=== PATIENT | female | born 1935 | race Caucasian/White ===

== ENCOUNTER 2020-05-18 15:54 | Inpatient (IN) | payer MEDICARE ==
[~2020-05-18] VITALS: Ht 152.4 cm; Wt 74.3 kg
[2020-05-18] MEDS ORDERED: LANOXIN125 MCG PO (16:18)
[2020-05-18] MEDS ORDERED: ELIQUIS2.5 MG PO (16:19)
[2020-05-18] MEDS ORDERED: CYMBALTA30 MG PO (16:19)
[2020-05-18] MEDS ORDERED: TOPROL XL100 MG PO (16:19)
[2020-05-18] MEDS ORDERED: FUROSEMIDE40 MG PO (16:19)
[2020-05-18] MEDS ORDERED: PRESERVISION PO (16:20)
[2020-05-18] MEDS ORDERED: [UNRECOGNIZED DRUG - OTHER] PO (16:21)
[2020-05-18] MEDS ORDERED: VITAMIN D PO (16:21)
[2020-05-18] MEDS ORDERED: GLUCOTROL 5 MG T5 MG PO (16:21)
[2020-05-18] MEDS ORDERED: SEROQUEL25 MG PO (16:22)
[2020-05-18 16:25] LABS: BASOPHILS 0.3 % (0-2); EOSINOPHILS 2.7 % (0-7); HEMOGLOBIN 12.7 g/dL (12-16); IMMATURE GRANULOCYTES 0.7 % (0-5); LYMPHOCYTES 23.3 % (15-50); MCH 31.5 pg (26.0-34.0); MCHC 32.6 g/dL (31.0-37.0); MCV 96.8 fL (80.0-100.0); MEAN PLATELET VOLUME 9.1 fL (7.4-10.4); MONOCYTES 10.8 % (2-11); NEUTROPHILS 62.2 % (40-80); PLATELET COUNT 226 10x3/uL (130-400); RBC 4.03 10x6/uL (4.00-5.40)
[2020-05-18 16:30] LABS: BILIRUBIN NEGATIVE (NEGATIVE); KETONE NEGATIVE (NEGATIVE); NITRITE NEGATIVE (NEGATIVE); UROBILINOGEN NORMAL (NORMAL)
[2020-05-18 16:31] LABS: BACTERIA FEW /hpf (NEGATIVE); EPITHELIAL CELLS OCC /hpf (0-5); WHITE CELLS - URINE 0-5 /hpf (NEGATIVE)
[2020-05-18 16:38] LABS: UDS - AMPHET NEGATIVE QUAL (NEGATIVE); UDS - BARB NEGATIVE QUAL (NEGATIVE); UDS - BENZO NEGATIVE QUAL (NEGATIVE); UDS - COCAINE NEGATIVE QUAL (NEGATIVE); UDS - OPIATE NEGATIVE QUAL (NEGATIVE); UDS - PCP NEGATIVE QUAL (NEGATIVE); UDS - THC NEGATIVE QUAL (NEGATIVE)
[2020-05-18 16:40] LABS: ANION GAP 13.2 mmol/L (8-16); CALCIUM 9.7 mg/dL (8.5-10.1); CARBON DIOXIDE 31.9 mmol/L (21.0-32.0); CREATININE - SERUM 1.6 mg/dL (0.6-1.3); POTASSIUM - SERUM 4.1 mmol/L (3.5-5.1)
[2020-05-18 16:54] LABS: ALBUMIN 3.6 g/dL (3.4-5.0); BILIRUBIN - TOTAL 0.77 mg/dL (0.2-1.3); MAGNESIUM - SERUM 2.3 mg/dL (1.8-2.4); PROTEIN - SERUM 8.2 g/dL (6.4-8.2)
[2020-05-18 20:44] VITALS: BP 180/74; BMI 31.8
--- NOTE | 2020-05-18 21:17 | NUR ---
PT ADMITTED TO [facility] TO DR. PEREZ. VOLUNTARY ADMISSION. FULL CODE. PT WAS WITH SISTER KATHLEEN VALDEZ. PT HAS A POA [facility] [phone]. Lukas HERNANDEZ RN SPOKE WITH DAUGHTER ABOUT ADMISSION. VERBAL CONSENT PER DAUGHTER AND PATIENT. PT LIVES AT HOME ALONE. CAME TO THE E.D. STATING SUICIDAL IDEATION, PEOPLE COMING INTO HER HOME AT NIGHT AND GRANDIOSE THINKING. PASSCODE: 6025. DX: SUICIDAL IDEATION. HISTORY OBTAINED FROM SISTER. PT AMBULATES WITH A CANE BUT USES W/C WITH LONG DISTANCES. PT CAN BE INCONTIENT OF BLADDER AT TIMES.
[2020-05-19 07:16] LABS: CHOL - HDL RATIO 8.2 ratio (2.3-4.1); LDL-HDL RATIO 4.6 ratio (1.5-3.5)
[2020-05-19 09:03] LABS: ALBUMIN 3.3 g/dL (3.4-5.0); BILIRUBIN - DIRECT 0.29 mg/dL (0.00-0.30); BILIRUBIN - INDIRECT 0.41 mg/dL (0.00-1.00); BILIRUBIN - TOTAL 0.7 mg/dL (0.2-1.3); PROTEIN - SERUM 7.3 g/dL (6.4-8.2)
--- NOTE | 2020-05-19 12:00 | NUR ---
RECEIVED IN HALLWAY OUTSIDE OF NURSES STATION. CALM AND COOPERATIVE WITH CARE AND ASSESSMENT. DENIES SUICIDAL IDEATION. STATES SHE DID FEEL SUICIDAL YESTERDAY BUT DOES NOT TODAY. STATES SHE HAS SUICIDAL FEELINGS THAT COME AND GO. REDIRECT AND REORIENT NEEDED. EATING AT THIS TIME. CONTINUE PLAN OF CARE.
[2020-05-19 18:53] VITALS: BP 128/77
--- NOTE | 2020-05-19 19:28 | NUR ---
RECEIVED IN HALLWAY OUTSIDE OF NURSES STATION. SITTING CALMLY IN A CHAIR WITH PEERS AT HER SIDE. CALM AND COOPERATIVE WITH CARE AND ASSESSMENT. NO STATEMENTS OF SELF HARM VOICED THIS EVENING. ENCOURAGE TO EXPRESS NEEDS. RESTING IN BED WITH EYES CLOSED AT THIS TIME. CONTINUE PLAN OF CARE.
[2020-05-20 08:34] VITALS: BP 207/97
[2020-05-20 09:48] VITALS: Ht 152.4 cm; Wt 74.3 kg
[2020-05-20 10:15] VITALS: BP 142/94
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
--- NOTE | 2020-05-20 15:11 | NUR ---
RECEIVED IN HALLWAY OUTSIDE OF NURSES STATION. CALM AND COOPERATIVE WITH CARE AND ASSESSMENT. VERY PLEASANT. DENIES SUICIDAL IDEATION. REDIRECT AND REORIENT NEEDED. PARTICIPATING IN GROUP AT THIS TIME. CONTINUE PLAN OF CARE.
--- NOTE | 2020-05-20 19:37 | NUR ---
RECEIVED IN DAYROOM. SITTING IN A CHAIR WITH PEERS AT HER SIDE. CALM AND COOPERATIVE WITH CARE AND ASSESSMENT. NO STATEMENTS OF SELF HARM VOICED THIS EVENING. ENCOURAGE TO EXPRESS NEEDS. CONTINUES TO SIT QUIETLY IN DAYROOM. CONTINUE PLAN OF CARE.
[2020-05-20 19:39] VITALS: BP 150/88
[2020-05-21 09:30] VITALS: BP 136/78
--- NOTE | 2020-05-21 09:56 | PN ---
PATIENT:YAMILA DAVIS MEDICAL RECORD: [id number] LOCATION:OFELIA JeromeAntoniNaeem ADMISSION DATE: 05/18/20 PROGRESS NOTE DATE OF SERVICE: 05/20/2020 SUBJECTIVE: The patient's case was discussed with staff. She has no new complaint. OBJECTIVE: The patient is in good behavioral control. She has poor insight about her situation. She certainly has no thoughts of self-harm, but does endorse a lot of depressive symptoms. ASSESSMENT: 1. Dementia. 2. Major depression. PLAN: Supportive and educational interventions were provided. The patient will be treated with antidepressant medication. Her long-term prognosis is guarded. TRANSINT:[id number] Voice Confirmation ID: [id number] DOCUMENT ID: [id number] SHARATH PEREZ MD at 0956 CC: [id number] DICTATION DATE: 05/20/20 1448 JD EDWARDS CONSULTANT: 05/21/20 0012 ADM IN [facility] [address] [place] [address]
--- NOTE | 2020-05-21 12:00 | NUR ---
RECEIVED IN HALLWAY OUTSIDE OF NURSES STATION. CALM AND COOPERATIVE WITH CARE AND ASSESSMENT. VERY PLEASANT. DENIES SUICIDAL IDEATION. REDIRECT AND REORIENT NEEDED. EATING AT THIS TIME. CONTINUE PLAN OF CARE.
--- NOTE | 2020-05-21 20:48 | NUR ---
RECEIVED IN DAYROOM. SITTING IN A CHAIR WITH PEERS AT HER SIDE. CALM AND COOPERATIVE WITH CARE AND ASSESSMENT.NO STATEMENTS OF SELF HARM VOICED THIS EVENING. ENCOURAGE TO EXPRESS NEEDS. CONTINUES TO SIT CALMLY IN DAYROOM. CONTINUE PLAN OF CARE.
[2020-05-21 21:55] VITALS: BP 141/88
--- NOTE | 2020-05-22 08:33 | PN ---
PATIENT:YAMILA DAVIS MEDICAL RECORD: [id number] LOCATION:OFELIA JeromeAntoniNaeem ADMISSION DATE: 05/18/20 PROGRESS NOTE DATE OF SERVICE: 05/21/2020 SUBJECTIVE: The patient's case was discussed with staff. She has no new complaint. OBJECTIVE: The patient denies intent to harm herself or others. She tolerates her medicines well. ASSESSMENT: 1. Dementia. 2. Major depression. PLAN: The patient is denying any thoughts of harming herself and has shown a significant improvement in her mood. I think social isolation and stress were the precipitating factors that brought her here and she is very open to alternate living environments and those are being discussed at the treatment team level. TRANSINT:[id number] Voice Confirmation ID: [id number] DOCUMENT ID: [id number] SHARATH PEREZ MD at 0833 CC: [id number] DICTATION DATE: 05/21/20 1514 DIGITAL LIBRARIAN: 05/22/20 0147 ADM IN [address] [place] [address]
[2020-05-22 10:20] VITALS: BP 126/67
--- NOTE | 2020-05-22 13:15 | NUR ---
Nutrition Follow-up: Diet: Diabetic PO intake: ~92% average x last 9 meals Last BM: none since admit. Wt: 161# (05/20/20); Admit Wt: 162# (05/18/20) Meds noted: lasix, vit D, SSI, glipizide. Labs noted: POC Glu 216(H) Recommend continue current diet. RD following.
--- NOTE | 2020-05-22 16:58 | NUR ---
ORIENTED TO SELF,TOWN AND MONTH.DENIES SUICIDAL THOUGHTS.COMPLIANT WITH STAFF AND MEDS.FRIENDLY,SMILES A LOT.WILL CONTINUE WITH CURRENT PLAN OF CARE,MONITOR FOR CHANGES AND SAFETY.
[2020-05-22 20:38] VITALS: BP 130/73
--- NOTE | 2020-05-23 03:44 | NUR ---
RECEIVED IN DAYROOM, SITTING IN RECLINER WATCHING TV WITH PEERS. DENIES SUICIDAL IDEATIONS. CALM AND COOPERATIVE WITH CARE AND ASSESSMENT. ADMINISTER PRESCRIBED MEDICATIONS ORDERED. COMPLIANT WITH MEDICATIONS. MONITOR FOR SAFETY AND CHANGES. CONTINUE POC.
[2020-05-23 08:16] VITALS: BP 145/79
--- NOTE | 2020-05-23 15:23 | PN ---
PATIENT:YAMILA DAVIS MEDICAL RECORD: [id number] LOCATION:OFELIA ThakkarNaeem ADMISSION DATE: 05/18/20 PROGRESS NOTE DATE OF SERVICE: 05/22/2020 SUBJECTIVE: The patient's case was discussed with staff. She has no new complaint. OBJECTIVE: The patient is in good behavioral control. She has poor insight about her situation. ASSESSMENT: Dementia. PLAN: The patient is showing improvement here on the unit. I believe that it is largely related to being around other people and not so much the therapy or pharmacology that we have provided. She is not only open to placement. She is desperately wanting it. I will increase her dose of Celexa and monitor her for clinical changes. TRANSINT:[id number] Voice Confirmation ID: [id number] DOCUMENT ID: [id number] SHARATH PEREZ MD at 1523 CC: [id number] DICTATION DATE: 05/22/20 1620 OFFAL ROLLER: 05/23/20 0123 ADM IN [id number] [place] [address]
--- NOTE | 2020-05-23 15:40 | NUR ---
ORIENTED TO SELF ,PLACE AND MONTH.DENIES THOUGHTS OF SELF HARM.VERY PLEASANT,OFFERS TO HELP OTHERS.COMPLIANT WITH STAFF AND MEDS.CONTINENT OF BOWEL AND BLADDER.WILL CONTINUE [facility] CURRENT PLAN OF CARE,MONITOR FOR CHANGES AND SAFETY.
[2020-05-23 19:38] VITALS: BP 133/65
--- NOTE | 2020-05-24 00:15 | NUR ---
B) patient is alert and oriented to person, place and month, calm and cooperative, helpful with other patients, I) Administered scheduled medications as ordered, monitored [facility] R) Mediation compliant, no S.I. this shift, contracts for safety P) Continue plan of care.
[2020-05-24 09:58] LABS: ANION GAP 15.4 mmol/L (8-16); CALCIUM 9.1 mg/dL (8.5-10.1); CARBON DIOXIDE 27.9 mmol/L (21.0-32.0); CREATININE - SERUM 1.3 mg/dL (0.6-1.3); POTASSIUM - SERUM 4.3 mmol/L (3.5-5.1)
--- NOTE | 2020-05-24 10:12 | NUR ---
PT SITTING AT TABLE WATCHING ACTIVITY. PT IS FRIENDLY WITH STAFF AND PEERS. PT IS ALERT AND ORIENTED TO PERSON AND PLACE. PT CAN MAKE NEEDS KNOWN. PT COMPLIANT WITH MEDS, VITALS AND ASSESSMENTS. PT IS ADL INDEPENDENT. DENIES SI. NO OTHER BEHAVIORS NOTED. WILL CONT PLAN OF CARE.
--- NOTE | 2020-05-24 12:30 | PN ---
PATIENT:YAMILA DAVIS MEDICAL RECORD: [id number] LOCATION:OFELIA JeromeAntoniNaeem ADMISSION DATE: 05/18/20 PROGRESS NOTE DATE OF SERVICE: 05/23/2020 SUBJECTIVE: The patient's case was discussed with staff. She has no new complaint. OBJECTIVE: The patient is in good behavioral control. She is quite attentive and cooperative. ASSESSMENT: 1. Dementia. 2. Major depression. PLAN: The patient is going to be transitioned to a fci soon. The office of long-term care has not given permission for that yet, but I have no concerns that they will give permission, the proper paperwork has been filed, it is just a matter of them giving us approval. I do not see her as being acutely dangerous or suicidal at this point. TRANSINT:[id number] Voice Confirmation ID: [id number] DOCUMENT ID: [id number] SHARATH PEREZ MD at 1230 CC: [id number] DICTATION DATE: 05/23/20 1611 MORTGAGE SALES MANAGER: 05/23/20 1910 ADM IN [facility] [address] [place] [address]
[2020-05-24 20:00] VITALS: BP 141/74
--- NOTE | 2020-05-25 03:40 | NUR ---
B.) PT IS ALERT AND ORIENTED X4. SHE IS CALM AND COOPERATIVE WITH STAFF AND PEERS. SHE DENIES SI AT THIS TIME. SHE IS OBSERVED SOCIALIZING WITH PEERS. I.) PROVIDED PM MEDICATIONS PRESCRIBED. REDIRECT NEEDED. R.) COMPLIANT WITH ALL MEDICATIONS. EASY TO REDIRECT. P.) WILL CONTINUE TO MONITOR.
--- NOTE | 2020-05-25 08:49 | PN ---
PATIENT:YAMILA DAVIS MEDICAL RECORD: [id number] LOCATION:ArianeREBECCA Thakkar112 ADMISSION DATE: 05/18/20 PROGRESS NOTE DATE OF SERVICE: 05/24/2020 SUBJECTIVE: The patient's case was discussed with staff. She has no new complaint. OBJECTIVE: The patient is in good behavioral control. She denies that she would seek to harm herself. ASSESSMENT: 1. Dementia. 2. Major depression. PLAN: The patient is in need of 30-ribj-o-day supervision. Efforts are being made to place her; however, the office of long-term care has decided they want to do a level 2 screening, meaning that at some point they will send a social media senior associate to speak with her to determine if my assessment of her need for shelter placement is correct. Until then, she will be here. TRANSINT:[id number] Voice Confirmation ID: [id number] DOCUMENT ID: [id number] SHARATH PEREZ MD at 0849 CC: [id number] DICTATION DATE: 05/24/20 1407 HANDHOLE MACHINE OPERATOR: 05/24/20 2343 ADM IN [facility] [address] [place] [address]
--- NOTE | 2020-05-25 12:47 | NUR ---
The patient is pleasant and calm she is isolative and she is sleeping today. She denies S.I., but she is depressed. She ambulates independently. Provide prescribed meds. The patient is compliant with meds, but she refused insulin as she said "I've never been a diabetic and taken insulin in my life." Continue POC.
--- NOTE | 2020-05-25 13:00 | NUR ---
The patient is pleasant and calm, she is smiling and laughs at some of the other patient's and staff. She ambulates independently. She denies S.I. or H.I. Provide prescribed meds. The patient is compliant with meds. Provide prescribed meds. The patient is compliant with meds. Continue POC.
[2020-05-25 19:57] VITALS: BP 128/56
--- NOTE | 2020-05-25 21:57 | NUR ---
B.) PT IS ALERT AND ORIENTED X4. SHE IS CALM, COOPERATIVE AND SOCIAL WITH ALL HER PEERS. SHE IS ABLE TO AMBULATE ON HER OWN WITHOUT ASSIST. SHE VOICES ALL NEEDS AND WANTS. I.) PROVIDED PM MEDICATIONS. REDIRECT NEEDED. R.) COMPLIANT WITH ALL MEDICATIONS. EASY TO REDIRECT. P.) WILL CONTINUE TO MONITOR.
[2020-05-26 10:15] VITALS: BP 149/70
--- NOTE | 2020-05-26 11:44 | NUR ---
ORIENTED X 4.COMPLIANT WITH STAFF AND MEDS,VISITS WITH PEERS.AMBULATES WITH STEADY GAIT.DENIES SUICIDAL THOUGHTS.WILL CONTINUE WITH CURRENT PLAN OF CARE,MONITOR FOR CHANGES AND SAFETY.
--- NOTE | 2020-05-26 11:59 | PN ---
PATIENT:YAMILA DAVIS MEDICAL RECORD: [id number] LOCATION:OFELIA Thakkar112 ADMISSION DATE: 05/18/20 PROGRESS NOTE DATE OF SERVICE: 05/25/2020 SUBJECTIVE: The patient's case was discussed with staff. She has no new complaint. OBJECTIVE: The patient denies intent to harm herself or others. She is tolerating her medicines well. ASSESSMENT: No change in diagnoses. PLAN: The patient can be transitioned out of the hospital as soon as placement is arranged. TRANSINT:[id number] Voice Confirmation ID: [id number] DOCUMENT ID: [id number] SHARATH PEREZ MD at 1159 CC: [id number] DICTATION DATE: 05/25/20 1426 PLANT ANATOMIST: 05/25/20 2216 ADM IN [address] [place] [address]
--- NOTE | 2020-05-26 19:58 | NUR ---
RECEIVED IN DAYROOM. SITTING IN A CHAIR WITH PEERS AT HER SIDE. CALM AND COOPERATIVE WITH CARE AND ASSESSMENT. NO STATEMENTS OF SELF HARM VOICED THIS EVENING. ENCOURAGE TO EXPRESS NEEDS. CONTINUES TO SIT CALMLY IN DAYROOM. CONTINUE PLAN OF CARE.
[2020-05-26 20:41] VITALS: BP 145/61
--- NOTE | 2020-05-27 09:00 | PN ---
PATIENT:YAMILA DAVIS MEDICAL RECORD: [id number] LOCATION:OFELIA Thakkar112 ADMISSION DATE: 05/18/20 PROGRESS NOTE DATE OF SERVICE: 05/26/2020 SUBJECTIVE: The patient's case was discussed with staff. She has no new complaint. OBJECTIVE: The patient denies that she would seek to harm herself or others. Her mood is euthymic. ASSESSMENT: 1. Dementia. 2. Major depression. PLAN: The patient can be transitioned out of the hospital as soon as placement is arranged. I will meet with the treatment team tomorrow and should have a better idea about her placement at that time. TRANSINT:[id number] Voice Confirmation ID: [id number] DOCUMENT ID: [id number] SHARATH PEREZ MD at 0900 CC: [id number] DICTATION DATE: 05/26/20 1309 PHARMACY GRAD INTERN: 05/26/20 2134 ADM IN [facility] [address] [place] [address]
[2020-05-27 09:47] VITALS: BP 135/69
--- NOTE | 2020-05-27 12:11 | NUR ---
PT IS AWAKE AND ALERT TO PERSON AND PLACE. CALM AND COOPERATIVE WITH ASSESSMENT. PRESCRIBED MEDS PROVIDED ORDERED. MED COMPLIANT. PT DENIES SI AT THIS TIME. REDIRECT AND REORIENT NEEDED. FALL PRECAUTIONS IN PLACE. WILL CPOC.
[2020-05-27 15:56] LABS: ANION GAP 12.9 mmol/L (8-16); CALCIUM 9.3 mg/dL (8.5-10.1); CARBON DIOXIDE 29.3 mmol/L (21.0-32.0); CREATININE - SERUM 1.4 mg/dL (0.6-1.3); POTASSIUM - SERUM 4.2 mmol/L (3.5-5.1)
--- NOTE | 2020-05-27 19:04 | NUR ---
RECEIVED IN DAYROOM. SITTING IN A CHAIR WITH PEERS AT HER SIDE. CALM AND COOPERATIVE WITH CARE AND ASSESSMENT. NO STATEMENTS OF SELF HARM VOICED AT THIS TIME. ENCOURAGE TO EXPRESS NEEDS. CONTINUES TO SIT CALMLY IN DAYROOM. CONTINUE PLAN OF CARE.
[2020-05-27 20:02] VITALS: BP 135/66
[2020-05-28 08:30] VITALS: BP 132/88
--- NOTE | 2020-05-28 09:08 | NUR ---
AWAKE AND ALERT TO PERSON, PLACE, AND TIME. CALM AND COOOPERATIVE WITH ASSESSMENT. PRESCRIBED MEDS PROVIDED ORDERED. MED COMPLIANT. DENIES SI AT THIS TIME. NO BEHAVIORS NOTED. PT SOCIALIZES WITH PEERS. FALL PRECAUTIONS IN PLACE. WILL CPOC.
--- NOTE | 2020-05-28 11:11 | PN ---
PATIENT:YAMILA DAVIS MEDICAL RECORD: [id number] LOCATION:KVNGSylvia ThakkarNaeem ADMISSION DATE: 05/18/20 PROGRESS NOTE DATE OF SERVICE: 05/27/2020 SUBJECTIVE: The patient's case was discussed with staff. She has no new complaint. OBJECTIVE: The patient has a euthymic mood and appropriate affect. She denies any thoughts of harming herself or others. ASSESSMENT: 1. Dementia. 2. Major depression. PLAN: The patient is ready to be discharged as soon as placement can be arranged. The office of long-term care screener saw her today. Hopefully, we will have an answer regarding this soon. TRANSINT:[id number] Voice Confirmation ID: [id number] DOCUMENT ID: [id number] SHARATH PEREZ MD at 1111 CC: [id number] DICTATION DATE: 05/27/20 1605 WOOD CUT ENGRAVER: 05/28/20 0306 ADM IN [address] [place] [address]
--- NOTE | 2020-05-28 18:33 | NUR ---
RECEIVED IN DAYROOM. SITTING IN A CHAIR WITH PEERS AT HER SIDE. RESTLESS. COOPERATIVE WITH CARE AND ASSESSMENT. NO SIGNS OF HALLUCINATIONS. NOT YELLING OUT AT THIS TIME. REDIRECT AND REORIENT NEEDED. CONTIUNES TO BE RESTLESS. CONTINUE PLAN OF CARE.
[2020-05-28 20:20] VITALS: BP 109/70
--- NOTE | 2020-05-29 08:56 | PN ---
PATIENT:YAMILA DAVIS MEDICAL RECORD: [id number] LOCATION:OFELIA JeromeAntoniNaeem ADMISSION DATE: 05/18/20 PROGRESS NOTE DATE OF SERVICE: 05/28/2020 SUBJECTIVE: The patient's case was discussed with staff. She has no new complaint. OBJECTIVE: The patient is in good behavioral control with limited insight about her situation. She is significantly and seriously impaired cognitively, but her mood has improved and there certainly is no evidence of acute dangerousness to herself or others. ASSESSMENT: 1. Dementia. 2. Major depression. PLAN: The patient can be transitioned out of the hospital as soon as placement arrangements are made. TRANSINT:[id number] Voice Confirmation ID: [id number] DOCUMENT ID: [id number] SHARATH PEREZ MD at 0856 CC: [id number] DICTATION DATE: 05/28/20 1508 PLUCK SEPARATOR: 05/28/20 2156 ADM IN [id number] [place] [address]
--- NOTE | 2020-05-29 09:51 | NUR ---
PT IS AWAKE AND ALERT TO PERSON, PLACE, AND TIME. CALM AND COOPERATIVE WITH ASSESSMENT. PT IS SOCIALIZING WITH PEERS IN DAYROOM. NO BEHAVIORS NOTED. PRESCRIBED MEDS PROVIDED ORDERED. MED COMPLIANT. REDIRECT AND REORIENT NEEDED. FALL PRECAUTIONS IN PLACE. WILL CPOC.
--- NOTE | 2020-05-29 10:10 | NUR ---
Nutrition Follow-up: Diet: Diabetic PO intake: 100% x all meals Last BM: 05/28/20. Wt: 164.6# (05/26/20); Admit Wt: 162# (05/18/20) Meds noted: glipizide, jardiance, lasix, vit D, SSI. POC Glu 252(H). Recommend continue current diet. RD following.
[2020-05-29 13:17] VITALS: BP 131/74
[2020-05-29 20:19] VITALS: BP 119/74
--- NOTE | 2020-05-30 02:17 | NUR ---
B.) PT IS ALERT AND ORIENTED X4. SHE IS CALM AND COOPERATIVE WITH STAFF. SHE IS OBSERVED SOCIALIZING WITH PEERS. SHE HAS A BRIGHT AFFECT AND DENIES ANY THOUGHTS OF SELF HARM. I.) PROVIDED PM MEDICATIONS PRESCRIBED. REDIRECT NEEDED. R.) COMPLIANT WITH ALL MEDICATIONS. EASY TO REDIRECT. P.) WILL CONTINUE TO MONITOR.
[2020-05-30 09:39] VITALS: BP 138/75
--- NOTE | 2020-05-30 09:53 | NUR ---
The patient is awake and alert, she is pleasant, she watches staff and the other patient's she gets tickled at some of the stuff she hears or sees and she will chuckle. She is not showing any depression, she denies S.I. She ambulates independently. Continue POC.
--- NOTE | 2020-05-30 10:18 | PN ---
PATIENT:YAMILA DAVIS MEDICAL RECORD: [id number] LOCATION:JustusAntoniREBECCA Thakkar112 ADMISSION DATE: 05/18/20 PROGRESS NOTE DATE OF SERVICE: 05/29/2020 SUBJECTIVE: The patient's case was discussed with staff. She has no new complaint. OBJECTIVE: The patient is in good behavioral control. She is tolerating her medicines well. ASSESSMENT: 1. Dementia. 2. Major depression. PLAN: The patient can be transitioned out of the hospital as soon as arrangements can be made for her placement. TRANSINT:[id number] Voice Confirmation ID: [id number] DOCUMENT ID: [id number] SHARATH PEREZ MD at 1018 CC: [id number] DICTATION DATE: 05/29/20 1550 COLUMN PRECASTER: 05/29/20 2018 ADM IN [address] [place] [address]
[2020-05-30 20:07] VITALS: BP 143/76
--- NOTE | 2020-05-31 00:48 | NUR ---
B) Patient is alert and oriented to person and oplace, calm and cooperative, social with other patients, I) Administered scheduled medications as ordered, assisted with needs, R) Mediation compliant, helpful with other patients, P) Continue plan of care.
--- NOTE | 2020-05-31 08:51 | NUR ---
The patient is awake, alert, and pleasant. She has no S.I. or H.I., she interacts with staff and peers. She ambulates, toilets, and feeds herself. Provide prescribed meds. The patient is compliant with meds. She participates in groups and activities easily. Monitor her mood and behavior r/t depression. Continue POC.
[2020-05-31 09:00] VITALS: BP 132/66
--- NOTE | 2020-05-31 10:54 | NUR ---
A COVID test was obtained and sent to the lab. The test was performed for a near future placement.
[2020-05-31 20:00] VITALS: BP 127/53
--- NOTE | 2020-05-31 20:00 | NUR ---
B) RECEIVED IN DAYROOM SITTING ON SOFA, SOCIALIZING WITH PEERS. HAS A PLEASANT AFFFECT. DENIES SI OR ANY HARM TO SELF. I) ADMINISTER SCHEDULED MEDICATIONS, REDIRECT NEEDED. R) COMPLIANT WITH MEDICATIONS. EASY TO REDIRECT. P) WILL CONTINUE TO MONITOR.
[2020-06-01 09:18] VITALS: BP 143/80
--- NOTE | 2020-06-01 11:45 | NUR ---
PT SITTING ON COUCH SOCIALIZING WITH OTHER PTS AT THIS TIME. PT IS CONFUSED AND ALERT TO PERSON, PLACE AND TIME. PT IS FRIENDLY WITH STAFF AND PEERS. PT IS MED COMPLIANT WITH MEDS, VITALS AND ASSESSMENTS. PT DENIES SI. PT CAN MAKE NEEDS KNOWN. AMBULATES. CACHIL DEHE. WILL CONT PLAN OF CARE.
[2020-06-01 21:28] VITALS: BP 141/57
[2020-06-02 08:53] VITALS: BP 139/70
--- NOTE | 2020-06-02 12:00 | NUR ---
RECEIVED IN HALLWAY OUTSIDE OF NURSES STATION. CALM AND COOPERATIVE WITH CARE AND ASSESSMENT. PLEASANT. DENIES SUICIDAL IDEATION. REDIRECT AND REORIENT NEEDED. EATING AT THIS TIME. CONTINUE PLAN OF CARE.
[2020-06-02 20:03] VITALS: BP 118/65
--- NOTE | 2020-06-03 08:16 | NUR ---
REC'D PT IN HALLWAY BY NURSES STATION. ASSESSMENT COMPLETED. AWAKE AND ALERT X 3. PRESCRIBED MEDS PROVIDED ORDERED. MED COMPLAINT. NO BEHAVIORS NOTED AT THIS TIME. REDIRECT AND REORIENT NEEDED. FALL PRECAUTIONS IN PLACE. WILL CPOC.
[2020-06-03 08:49] VITALS: BP 140/64
--- NOTE | 2020-06-03 09:13 | PN ---
PATIENT:YAMILA DAVIS MEDICAL RECORD: [id number] LOCATION:[facility] ADMISSION DATE: 05/18/20 PROGRESS NOTE DATE OF SERVICE: 05/30/2020 SUBJECTIVE: The patient's case was discussed with staff. She has no new complaint. OBJECTIVE: The patient is in good behavioral control with poor insight about her situation. ASSESSMENT: 1. Dementia. 2. Major depression. PLAN: Current medicines have been reviewed and will be maintained. Long-term prognosis is guarded. TRANSINT:[id number] Voice Confirmation ID: [id number] DOCUMENT ID: [id number] SHARATH PEREZ MD at 0913 CC: [id number] DICTATION DATE: 05/30/20 1632 COMPLAINT INSPECTOR: 05/30/20 1833 ADM IN [id number] [place] [address]
--- NOTE | 2020-06-03 19:36 | NUR ---
RECEIVED IN HALLWAY OUTSIDE OF DINING AREA. CALM AND COOPERATIVE WITH CARE AND ASSESSMENT. CONTINUES TO ISOLATE. NO STATEMENTS OF SELF HARM VOICED THIS EVENING. ENCOURAGE TO EXPRESS NEEDS. RESTING QUIETLY IN DAYROOM AT THIS TIME. CONTINUE PLAN OF CARE.
[2020-06-03 20:28] VITALS: BP 129/67
[2020-06-04 09:17] VITALS: BP 126/66
--- NOTE | 2020-06-04 12:00 | NUR ---
RECEIVED IN HALLWAY OUTSIDE OF NURSES STATION. SOCIALIZING WITH OTHER PATIENTS. CALM AND COOPERATIVE WITH CARE AND ASSESSMENT. DENIES SUICIDAL IDEATION. REDIRECT AND REORIENT NEEDED. EATING AT THIS TIME. CONTINUE PLAN OF CARE.
[2020-06-04] MEDS ORDERED: CRESTOR10 MG PO (16:52)
[2020-06-04] MEDS ORDERED: TOPROL XL50 MG PO (16:52)
[2020-06-04] MEDS ORDERED: CELEXA20 MG PO (16:53)
[2020-06-04] MEDS ORDERED: JARDIANCE25 MG PO (16:53)
[2020-06-04] MEDS ORDERED: NAMENDA5 MG PO (16:53)
[2020-06-04] MEDS ORDERED: GLIPIZIDE10 MG PO (16:54)
[2020-06-04] MEDS ORDERED: CLOTRIM ANTIFUN15 GM TOPICAL (16:54)
[2020-06-04] MEDS ORDERED: Vitamin D PO (16:54)
[2020-06-04] MEDS ORDERED: LANTUS INS100 UNITS/ SC (16:54)
[2020-06-04 19:53] VITALS: BP 121/69
--- NOTE | 2020-06-04 22:04 | NUR ---
RECEIVED IN DAYROOM. SITTING IN A CHAIR WITH PEERS AT HER SIDE. CALM AND COOPERATIVE WITH CARE AND ASSESSMENT. NO STATEMENTS OF SELF HARM VOICED THIS EVENING. ENCOURAGE TO EXPRESS NEEDS. RESTING IN BED WITH EYES CLOSED AT THIS TIME. CONTINUE PLAN OF CARE.
--- NOTE | 2020-06-05 08:22 | PN ---
PATIENT:YAMILA DAVIS MEDICAL RECORD: [id number] LOCATION:[facility] ADMISSION DATE: 05/18/20 PROGRESS NOTE DATE OF SERVICE: 06/04/2020 SUBJECTIVE: The patient's case was discussed with staff. She has no new complaint. OBJECTIVE: The patient will be transitioned out of the hospital tomorrow. She is going to go to a local assisted living center for placement. She will be monitored for clinical changes and followed on an outpatient basis there. TRANSINT:[id number] Voice Confirmation ID: [id number] DOCUMENT ID: [id number] SHARATH PEREZ MD at 0822 CC: [id number] DICTATION DATE: 06/04/20 1651 CHAPLAIN: 06/05/20 0107 ADM IN [id number] [place] [address]
--- NOTE | 2020-06-05 09:08 | NUR ---
Nutrition Follow-up: Diet: Diabetic PO intake: 90-100% x all meals Last BM: 06/03/20 (per Pt/MD note). Wt: 168# (06/02/20); Admit Wt: 162# (05/18/20) Meds noted: lantus (20U), SSI, glipizide, jardiance, lasix Labs noted: POC Glu 221(H)-06/05/[address] RD following.
[2020-06-05 09:15] VITALS: BP 116/69
--- NOTE | 2020-06-05 11:07 | NUR ---
RECEIVED THIS AM SITTING IN CHAIR IN HALLWAY AT NURSES STATION THIS AM.CONFUSED.COMPLIANT WITH STAFF AND MEDS.HAS TO BE ENCOURAGED TO PARTICIPATE IN ACTIVITIES,PREFERS TO SLEEP.AMBULATES.DENIES THOUGHTS OF SELF HARM.WILL CONTINUE WITH CURRENT PLAN OF CARE,MONITOR FOR CHANGES AND SAFETY.
--- NOTE | 2020-06-05 13:00 | NUR ---
SPOKE WITH PTS DAUGHTER ABOUT HER DISCHARGING TO THE [facility]. DAUGHTER STATED SHE WAS TAKING HER HOME UNTIL HER ROOM COULD BE SET-UP AT THE [facility]. NURSE VERBALIZIED UNDERSTANDING.
--- NOTE | 2020-06-05 14:36 | NUR ---
PT DISHCARGED INTO CARE OF HER DAUGHTER AND GRANDDAUGHTER AT THIS TIME TO A PRIVATE CAR. PT WAS IN A GOOD MOOD UPON DISCHARGE. ALL PERSONAL BELONGINGS WERE PACKED AND SENT TO PT AT THIS TIME. PAPERWORK SENT WITH PT AND PHARMACY WAS CALLED WITH [facility].
== END 2020-06-05 14:33 | disposition home or self-care (01) | DRG 885 ==
LOC: D.ER 15:54 → D.PSYCH 18:20 → D.ER 19:14 → D.PSYCH 06-05 14:33
PROVIDERS: Family Medicine; ADMIT Psychiatry & Neurology Psychiatry; ATTEND Psychiatry & Neurology Psychiatry
DX: F33.2 Major depressive disorder, recurrent severe without psychotic features (principal); R45.851 Suicidal ideations; N17.9 Acute kidney failure, unspecified; I11.0 Hypertensive heart disease with heart failure; I50.9 Heart failure, unspecified; I48.91 Unspecified atrial fibrillation; E55.9 Vitamin D deficiency, unspecified; E11.42 Type 2 diabetes mellitus with diabetic polyneuropathy; G30.1 Alzheimer's disease with late onset; F02.80 Dementia in other diseases classified elsewhere, unspecified severity, without behavioral disturbance, psychotic disturbance, mood disturbance, and anxiety; K75.9 Inflammatory liver disease, unspecified; B35.1 Tinea unguium; E78.5 Hyperlipidemia, unspecified; R05 Cough

== ENCOUNTER 2020-06-05 14:19 | Emergency (ER) | payer SELFPAY ==
[~2020-06-05] VITALS: Ht 152.4 cm; Wt 74.1 kg
[~2020-06-05 14:19] MED LIST: CELEXA20 MG PO; CLOTRIM ANTIFUN15 GM TOPICAL; CRESTOR10 MG PO; CYMBALTA30 MG PO; ELIQUIS2.5 MG PO; FUROSEMIDE40 MG PO; GLIPIZIDE10 MG PO; GLUCOTROL 5 MG T5 MG PO; JARDIANCE25 MG PO; LANOXIN125 MCG PO; LANTUS INS100 UNITS/ SC; NAMENDA5 MG PO; PRESERVISION PO; SEROQUEL25 MG PO; TOPROL XL100 MG PO; TOPROL XL50 MG PO; VITAMIN D PO; Vitamin D PO; [UNRECOGNIZED DRUG - OTHER] PO
[2020-06-05 14:25] VITALS: Ht 152.4 cm; Wt 74.1 kg
[2020-06-05 18:24] VITALS: BP 147/84
== END 2020-06-05 18:24 | disposition home or self-care (01) ==
LOC: D.ER 14:19
DX: R07.89 Other chest pain (principal); S09.90XA Unspecified injury of head, initial encounter; S00.03XA Contusion of scalp, initial encounter; W19.XXXA Unspecified fall, initial encounter; Y93.9 Activity, unspecified; Y92.9 Unspecified place or not applicable; E11.9 Type 2 diabetes mellitus without complications; I50.9 Heart failure, unspecified; Z79.84 Long term (current) use of oral hypoglycemic drugs; R51 Headache